=== PATIENT | male | born 1960 | race Caucasian/White ===

== ENCOUNTER 2019-08-25 10:58 | Emergency (ER) | payer OTHER ==
[~2019-08-25] VITALS: Ht 170.2 cm; Wt 79.4 kg
[2019-08-25 11:06] VITALS: BP 151/124
[2019-08-25] MEDS ORDERED: SIMVASTATIN80 MG PO (11:08)
[2019-08-25] MEDS ORDERED: DOXYCYCLINE 10100 M2 PO (11:25)
== END 2019-08-25 11:34 | disposition home or self-care (01) ==
LOC: M.ERS 10:58
DX: L03.114 Cellulitis of left upper limb (principal)

== ENCOUNTER 2020-02-15 16:42 | Emergency (ER) | payer OTHER ==
[~2020-02-15] VITALS: Ht 175.3 cm; Wt 79.4 kg
[~2020-02-15 16:42] MED LIST: DOXYCYCLINE 10100 M2 PO; SIMVASTATIN80 MG PO
[2020-02-15] MEDS ORDERED: CLEOCIN HCL150 M1 PO (19:19)
[2020-02-15 19:34] VITALS: BP 138/99
== END 2020-02-15 19:34 | disposition home or self-care (01) ==
LOC: M.ERS 16:42
DX: S81.011A Laceration without foreign body, right knee, initial encounter (principal); W29.3XXA Contact with powered garden and outdoor hand tools and machinery, initial encounter; Y93.89 Activity, other specified; Y92.89 Other specified places as the place of occurrence of the external cause; Y99.8 Other external cause status